=== PATIENT | male | born 1955 | race Caucasian/White ===

== ENCOUNTER 2016-06-04 07:00 | Day surgery (SDC) | payer MEDICARE ==
[2016-06-04] MEDS ORDERED: Lactated Ringers 1,000 ML IV SCH (07:30)
[2016-06-04] MEDS ORDERED: fentaNYL 100 MCG/2 ML SDV ONE (07:55)
[2016-06-04] MEDS ORDERED: Midazolam 1 MG/ML 2 ML SDV ONE (07:55)
[2016-06-04] MEDS ORDERED: Propofol 200 MG/20 ML SDV ONE (07:56)
[2016-06-04 10:36] VITALS: BP 131/94
--- NOTE | 2016-06-05 07:26 | OR ---
DATE OF PROCEDURE: 06/05/2015 PREOPERATIVE DIAGNOSIS: Colon cancer screening. POSTOPERATIVE DIAGNOSIS: Diverticulosis. PROCEDURE: Colonoscopy to the cecum. ANESTHESIA: IV anesthesia with monitored anesthesia care. INDICATION: This 60-year-old white male is referred for colonoscopy for colon cancer screening. He has never had a colonoscopic exam. I counseled him for the procedure including risks and alternatives, and he gave his informed consent to proceed. DESCRIPTION OF PROCEDURE: The patient was placed in the left lateral decubitus position. IV anesthesia was administered by the Anesthesia Service. Time-out was held. A rectal exam was performed, which was unremarkable. The flexible video Olympus colonoscope was introduced through his anus, up his rectum, and out his colon all the way to the cecum. En route, we saw a few scattered left-sided diverticula. There was no bleeding or inflammation associated with any of them. Once the cecum was reached, the scope was slowly withdrawn examining the mucosa throughout. No additional mucosal abnormalities were noted. The scope was retroflexed in the rectum with the distal rectum appearing unremarkable. The scope was straightened and removed. He tolerated the procedure well. Candelario Olivera MD /[id number] MTDBrittnee
== END 2016-06-04 10:15 | disposition home or self-care (01) ==
LOC: JP.SDS 07:00
PROVIDERS: ATTEND Surgery
DX: Z12.11 Encounter for screening for malignant neoplasm of colon (principal); K57.30 Diverticulosis of large intestine without perforation or abscess without bleeding; G47.33 Obstructive sleep apnea (adult) (pediatric); E11.9 Type 2 diabetes mellitus without complications; I10 Essential (primary) hypertension
CPT/HCPCS: G0121; J2250; J2704; J3010; J7120

== ENCOUNTER 2021-02-01 11:42 | Emergency (ER) | payer MEDICARE ==
[2021-02-01 12:34] VITALS: BP 154/103; PULSE 65
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
--- NOTE | 2021-02-01 14:18 | CT ---
Head wo Cont CLINICAL HISTORY: Head injury COMPARISON: None TECHNIQUE: Transverse scans were obtained from the base of the skull through the vertex without IV contrast on a multislice, multidetector CT scanner. Auto dosage reduction and iterative reconstruction techniques employed. FINDINGS: There is a well-circumscribed low-attenuation focus in the head of the left cardiac nucleus consistent with a remote lacunar-type infarct. There is an 11 x 12 mm well-circumscribed low-attenuation focus in the gilda and the left parasagittal region There are some scattered periventricular lucency. There is no mass effect, hemorrhage, or extraaxial collection. The basal cisterns and sulci over the convexities are prominent. The ventricles are normal for age. 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
== END 2021-02-01 15:59 | disposition home or self-care (01) ==
LOC: JP.ED 11:42
DX: E87.8 Other disorders of electrolyte and fluid balance, not elsewhere classified (principal); E78.00 Pure hypercholesterolemia, unspecified; I10 Essential (primary) hypertension; K21.9 Gastro-esophageal reflux disease without esophagitis; E66.9 Obesity, unspecified; Z86.73 Personal history of transient ischemic attack (TIA), and cerebral infarction without residual deficits; Z87.891 Personal history of nicotine dependence; Z79.899 Other long term (current) drug therapy; Z68.34 Body mass index [BMI] 34.0-34.9, adult
CPT/HCPCS: 70450; 70450-26; 99284-25

== ENCOUNTER 2022-01-03 10:52 | Emergency (ER) | payer MEDICARE | END 2022-01-03 12:21 | disposition home or self-care (01) | LOC: JP.ED 10:52 | DX: S01.81XA Laceration without foreign body of other part of head, initial encounter (principal); W01.0XXA Fall on same level from slipping, tripping and stumbling without subsequent striking against object, initial encounter | CPT/HCPCS: 12011; 99282 ==